=== PATIENT | female | born 1965 | race Hispanic/Latino ===

== ENCOUNTER → 2018-02-17 | Day surgery (SDC) | payer OTHER ==
[~2018-02-17] MED LIST: FENTANYL CITRATE/PF 100MCG/2 ML INJ ONE; HYOSCYAMINE SULFATE 0.5 MG/ML AMP ONE; LIDOCAINE HCL 2% LOCAL INJ 5 ML SDV VIAL INJ ONE; MIDAZOLAM HCL 2 MG/2 ML VIAL ONE; PROPOFOL IV EMULSION 10 MG/ML 50 ML VIAL ONE; THYROID MEDICATION PO; VITAMIN D250000 UNIT PO
--- NOTE | 2018-02-17 14:27 | Operative Report ---
DATE OF PROCEDURE: February 17, 2018 REFERRING PHYSICIAN: Quiana Guerra MD PROCEDURE PERFORMED: Colonoscopy and polypectomy. INDICATIONS FOR PROCEDURE: Colorectal cancer screening. MEDICATION: Patient was done under MAC. Please see anesthesiologist's note. PROCEDURE: With the patient in the left lateral decubitus position, the flexible fiberoptic Olympus colonoscope was inserted into the rectum with ease and advanced all the way to the cecum. It was then withdrawn slowly. Mucosa overlying the cecum and ascending colon appeared to be within normal limits. One polyp was hot biopsied from the transverse and one polyp was hot biopsied from the descending. Diverticular disease was noted to involve the sigmoid colon. The rectum appeared to be within normal limits. The scope was then retroflexed into the distal rectum, and small internal hemorrhoids were noted, none of which was actively bleeding. The scope was then straightened out. It was subsequently withdrawn. Patient tolerated the procedure well. IMPRESSION 1. Transverse colon polyp, hot biopsied. 2. Descending colon polyp, hot biopsied. 3. Diverticulosis. 4. Internal hemorrhoids, none actively bleeding. PLAN: Follow up histology. Initiate high-fiber, low-fat diet. Initiate high-fiber supplement. Patient will need a followup colonoscopy in 3 to 5 years. Job#: [id number] cc:JOHNATHAN GUERRA MD
== END | disposition home or self-care (01) ==
LOC: ENDO 08:51
PROVIDERS: ATTEND Internal Medicine Gastroenterology
DX: Z12.11 Encounter for screening for malignant neoplasm of colon (principal); D12.3 Benign neoplasm of transverse colon; K57.30 Diverticulosis of large intestine without perforation or abscess without bleeding; K64.8 Other hemorrhoids; K21.9 Gastro-esophageal reflux disease without esophagitis; R03.0 Elevated blood-pressure reading, without diagnosis of hypertension; E03.9 Hypothyroidism, unspecified; F41.9 Anxiety disorder, unspecified; Z88.0 Allergy status to penicillin; Z01.810 Encounter for preprocedural cardiovascular examination; Z68.35 Body mass index [BMI] 35.0-35.9, adult
CPT/HCPCS: 45384; 93005; J1980; J2001; J2250; 45378; 45385

== ENCOUNTER → 2018-03-20 | Outpatient (CLI) | payer OTHER ==
[~2018-03-20] MED LIST changes: -FENTANYL CITRATE/PF 100MCG/2 ML INJ ONE; -HYOSCYAMINE SULFATE 0.5 MG/ML AMP ONE; -LIDOCAINE HCL 2% LOCAL INJ 5 ML SDV VIAL INJ ONE; -MIDAZOLAM HCL 2 MG/2 ML VIAL ONE; -PROPOFOL IV EMULSION 10 MG/ML 50 ML VIAL ONE
--- NOTE | 2018-03-20 14:57 | Diagnostic Imaging Report ---
EXAM: Transabdominal and Transvaginal Pelvic Ultrasound INDICATION: \[id number] \[id number] \S\FIBROIDS INTRAMURAL COMPARISON: None TECHNIQUE: Grayscale transverse and sagittal transabdominal and transvaginal images were obtained of the pelvis. Transvaginal imaging was medically necessary to better evaluate the endometrium. CLINICAL HISTORY: 53 year old G3, P3; last menstrual period: 5 years ago. FINDINGS: Uterus: Orientation: Anteverted Size: Approximately 9.6 x 4.1 x 6.6 cm, Normal Mass: Multiple heterogeneous masses are noted in the uterus: * 2.7 x 3.0 x 3.1 cm likely probably subserosal mass in the inferior body * 1.1 x 1.0 x 1.0 cm iso to mildly hyperechoic intramural lesion in the inferior body. * 2.3 x 1.9 x 2.3 cm rounded, likely intramural lesion in the mid right anterior body, with areas of shadowing likely representing calcification. * 2.5 x 2.1 x 2.8 cm likely subserosal mass in the right posterior body. Cervix: Unremarkable Endometrium: Thickness: 0.4 cm, Normal. Appearance: Homogeneous echotexture without focal thickening. Right ovary: Not visualized. Left ovary: Not visualized. Adnexa: Normal Cul-de-sac: No free fluid IMPRESSION: 1. Enlarged multi fibroid uterus, as described. 2. Ovaries could not be visualized due to overlying bowel gas and enlarged uterus Signed by: Dr. Mitch Hill M.D. on 03/20/2018 2:54 PM
== END ==
LOC: US 09:01
PROVIDERS: ATTEND Obstetrics & Gynecology Obstetrics
DX: D25.1 Intramural leiomyoma of uterus (principal)
CPT/HCPCS: 76830

== ENCOUNTER → 2018-10-28 | Outpatient (CLI) | payer OTHER ==
--- NOTE | 2018-10-28 10:35 | Diagnostic Imaging Report ---
Examination: Barium swallow. Clinical indication: Dysphagia. Comparison examination: None available. Technique: Effervescent crystals and barium were ingested by mouth. Multiple images of the esophagus and stomach were obtained. Fluoroscopy time: 1.1 minutes Total cumulative air Kerma: 60.45 mGy Findings: Swallowing mechanism is grossly normal. Vallecula and perform sinuses are symmetric. Esophageal mucosa is unremarkable. Normal distensibility. Small hiatal hernia with moderate gastroesophageal reflux. Gastric mucosa is grossly unremarkable. Impression: Small sliding hiatal hernia with associated gastroesophageal reflux. Signed by: Dr. Andrés Mccoy M.D. on 10/28/2018 10:32 AM
== END ==
LOC: DX 09:11
PROVIDERS: ATTEND Internal Medicine
DX: R13.10 Dysphagia, unspecified (principal)
CPT/HCPCS: 74220

== ENCOUNTER → 2020-10-24 | Outpatient (CLI) | payer OTHER | LOC: RAD 09:14 | PROVIDERS: ATTEND Internal Medicine | DX: R06.02 Shortness of breath (principal) | CPT/HCPCS: 71046 ==

== ENCOUNTER → 2021-05-18 | Outpatient (CLI) | payer OTHER | LOC: RAD 09:02 | PROVIDERS: ATTEND Internal Medicine | DX: B94.8 Sequelae of other specified infectious and parasitic diseases (principal) | CPT/HCPCS: 71046 ==

== ENCOUNTER 2021-06-27 12:19 | Emergency (ER) | payer OTHER ==
[~2021-06-27] VITALS: Ht 162.6 cm; Wt 93.0 kg
[2021-06-27] MEDS ORDERED: ASPIRIN 81 MG CHEW TAB PO ONE (12:45)
[2021-06-27 12:52] LABS: BASOPHILS # (AUTO) 0.1 (0.0-0.1); BASOPHILS % 0.7 % (0.0-1.0); EOSINOPHILS # (AUTO) 0.3 (0.0-0.4); EOSINOPHILS % 3.6 % (0.0-6.0); HEMATOCRIT 46.3 % (34.2-44.1); HEMOGLOBIN 15.1 g/dL (12.0-16.0); LYMPHOCYTES # (AUTO) 1.8 (1.0-3.2); LYMPHOCYTES % 23.2 % (18.0-39.1); MEAN CORPUSCULAR HEMOGLOBIN 28.1 pg (28-32); MEAN CORPUSCULAR HGB CONC 32.6 g/dL (31-35); MEAN CORPUSCULAR VOLUME 86.1 fL (81-99); MONOCYTES # (AUTO) 0.6 (0.2-0.8); MONOCYTES % 8.2 % (4.4-11.3); NEUTROPHILS # (AUTO) 4.9 (2.1-6.9); PLATELET COUNT 282 x10e3/uL (140-360); RED BLOOD COUNT 5.38 x10e6/uL (3.6-5.1); RED CELL DISTRIBUTION WIDTH 12.9 % (11.7-14.4)
[2021-06-27 13:03] LABS: INR 0.88; PARTIAL THROMBOPLASTIN TIME 25.8 seconds (23.8-35.5); PROTHROMBIN TIME 12.7 seconds (11.9-14.5)
[2021-06-27 13:11] LABS: ALBUMIN 3.8 g/dL (3.5-5.0); ALBUMIN/GLOBULIN RATIO 1.3 (0.8-2.0); ANION GAP 13.7 mmol/L (8-16); CALCIUM 9.3 mg/dL (8.4-10.2); CREATININE, SERUM 0.72 mg/dL (0.57-1.11); POTASSIUM 3.7 mmol/L (3.5-5.1)
[2021-06-27 13:29] LABS: CREATINE KINASE MB 1.7 ng/mL (0-5.0)
[2021-06-27] MEDS ORDERED: ZITHROMAX500 MG PO (13:42)
[2021-06-27] MEDS ORDERED: AZITHROMYCIN250 MG PO (13:43)
[2021-06-27] MEDS ORDERED: ALBUTEROL1.25 MG/3 NEB (13:43)
== END 2021-06-27 15:00 | disposition home or self-care (01) ==
LOC: ER 12:37
DX: R06.02 Shortness of breath (principal); J20.9 Acute bronchitis, unspecified; E03.9 Hypothyroidism, unspecified; Z86.16 Personal history of COVID-19
CPT/HCPCS: 36415; 71045; 80053; 82550; 82553; 83880; 84484; 85025; 85610; 85730; 93005; 99284; U0002

== ENCOUNTER 2021-07-17 18:37 | Inpatient (IN) | payer OTHER ==
[~2021-07-17] VITALS: Ht 162.6 cm; Wt 92.1 kg
[~2021-07-17 18:37] MED LIST changes: +ALBUTEROL1.25 MG/3 NEB; +AZITHROMYCIN250 MG PO; +ZITHROMAX500 MG PO
[2021-07-17] MEDS ORDERED: SODIUM CHLORIDE 0.9% 1000ML 1,000 ML IV ONE (19:00)
[2021-07-17 19:19] LABS: BASOPHILS # (AUTO) 0.1 (0.0-0.1); BASOPHILS % 0.7 % (0.0-1.0); EOSINOPHILS # (AUTO) 0.2 (0.0-0.4); EOSINOPHILS % 2.8 % (0.0-6.0); HEMATOCRIT 47.9 % (34.2-44.1); HEMOGLOBIN 15.8 g/dL (12.0-16.0); LYMPHOCYTES # (AUTO) 2.1 (1.0-3.2); LYMPHOCYTES % 24.9 % (18.0-39.1); MEAN CORPUSCULAR HEMOGLOBIN 28.4 pg (28-32); MEAN CORPUSCULAR VOLUME 86.2 fL (81-99); MONOCYTES # (AUTO) 0.7 (0.2-0.8); MONOCYTES % 7.7 % (4.4-11.3); NEUTROPHILS # (AUTO) 5.5 (2.1-6.9); NEUTROPHILS % 63.5 % (38.7-80.0); PLATELET COUNT 329 x10e3/uL (140-360); RED BLOOD COUNT 5.56 x10e6/uL (3.6-5.1); RED CELL DISTRIBUTION WIDTH 12.7 % (11.7-14.4)
[2021-07-17 19:28] LABS: INR 0.93; PROTHROMBIN TIME 13.2 seconds (11.9-14.5)
[2021-07-17 19:45] LABS: ALBUMIN 4.4 g/dL (3.5-5.0); ANION GAP 16.3 mmol/L (8-16); CALCIUM 8.8 mg/dL (8.4-10.2); CREATININE, SERUM 0.7 mg/dL (0.57-1.11); POTASSIUM 3.3 mmol/L (3.5-5.1)
[2021-07-17 19:46] LABS: ALBUMIN/GLOBULIN RATIO 1.4 (0.8-2.0)
[2021-07-17] MEDS ORDERED: SODIUM CHLORIDE 0.9% 50ML 50 ML ONE (20:27)
[2021-07-17] MEDS ORDERED: IOPAMIDOL 370 MG/ML 200 ML INFUS..BTL INJ ONE (20:28)
[2021-07-17] MEDS: HEPARIN 25,000 UNIT 1,200 UNIT in DEXTROSE 5% 250ML 250 ML IV SCH (22:30)
[2021-07-17] MEDS ORDERED: HEPARIN SOD (PORCINE) 5,000 UNIT/ML VIAL IV ONE (22:45)
[2021-07-17 23:08] LABS: CREATINE KINASE MB 0.9 ng/mL (0-5.0)
[2021-07-17] MEDS: CEFTRIAXONE 1 GM in SODIUM CHLORIDE 0.9% 50ML 50 ML IV SCH (23:53)
[2021-07-18] MEDS ORDERED: POTASSIUM CHLORIDE 20 MEQ TAB CR PO STA (01:32)
[2021-07-18] MEDS ORDERED: PHENAZOPYRIDINE HCL 100 MG TAB PO PRN (01:45)
[2021-07-18] MEDS ORDERED: CHLORASEPTIC SPRAY 177 ML BTL MM PRN (01:45)
[2021-07-18] MEDS ORDERED: DEXTROSE 50% SYRINGE 50 ML IV PRN (01:45)
[2021-07-18] MEDS ORDERED: POTASSIUM CHLORIDE 20 MEQ TAB CR PO PRN (01:45)
[2021-07-18] MEDS ORDERED: ALBUTEROL/IPRATROPIUM 3 ML NEB NEB PRN (01:45)
[2021-07-18] MEDS ORDERED: DOCUSATE SODIUM 100 MG CAP PO PRN (01:45)
[2021-07-18] MEDS ORDERED: HYDRALAZINE HCL 20 MG/ML VIAL IV PRN (01:45)
[2021-07-18] MEDS ORDERED: DIPHENHYDRAMINE HCL 25 MG CAP PO PRN (01:45)
[2021-07-18 07:07] LABS: BASOPHILS # (AUTO) 0.1 (0.0-0.1); BASOPHILS % 0.8 % (0.0-1.0); EOSINOPHILS # (AUTO) 0.3 (0.0-0.4); EOSINOPHILS % 4.1 % (0.0-6.0); HEMATOCRIT 45.2 % (34.2-44.1); HEMOGLOBIN 15.1 g/dL (12.0-16.0); LYMPHOCYTES # (AUTO) 1.7 (1.0-3.2); MEAN CORPUSCULAR HEMOGLOBIN 28.5 pg (28-32); MEAN CORPUSCULAR HGB CONC 33.4 g/dL (31-35); MEAN CORPUSCULAR VOLUME 85.3 fL (81-99); MONOCYTES # (AUTO) 0.6 (0.2-0.8); MONOCYTES % 9.2 % (4.4-11.3); NEUTROPHILS # (AUTO) 3.8 (2.1-6.9); NEUTROPHILS % 58.7 % (38.7-80.0); PLATELET COUNT 297 x10e3/uL (140-360); RED CELL DISTRIBUTION WIDTH 12.8 % (11.7-14.4)
[2021-07-18 07:32] LABS: ALBUMIN 3.7 g/dL (3.5-5.0); ALBUMIN/GLOBULIN RATIO 1.2 (0.8-2.0); ANION GAP 14.2 mmol/L (8-16); CALCIUM 8.4 mg/dL (8.4-10.2); CREATININE, SERUM 0.64 mg/dL (0.57-1.11)
[2021-07-18 07:33] LABS: POTASSIUM 4.2 mmol/L (3.5-5.1)
[2021-07-18 07:37] VITALS: BP 160/91
[2021-07-18 07:38] LABS: CREATINE KINASE 78 IU/L (29-168)
[2021-07-18 07:46] VITALS: BP 160/91
[2021-07-18 07:47] LABS: CHOL/HDL RATIO 4.2 (3.0-3.6)
[2021-07-18 08:03] VITALS: BP 160/91
[2021-07-18 08:07] LABS: THYROID STIMULATING HORMONE 3.21 uIU/mL (0.350-4.940)
[2021-07-18] MEDS ORDERED: SODIUM CHLORIDE 0.9% 250ML 250 ML ONE (08:09)
[2021-07-18] MEDS: CEFTRIAXONE 1 GM in SODIUM CHLORIDE 0.9% 50ML 50 ML IV SCH (08:15)
[2021-07-18] MEDS ORDERED: CLINDAMYCIN PHOS 900MG/ 50ML 50 ML IV ONE (10:15)
[2021-07-18 11:40] VITALS: BP 177/89
[2021-07-18] MEDS: LOSARTAN POTASSIUM 100 MG TAB PO SCH (12:02)
[2021-07-18 12:10] LABS: CLARITY,URINE CLEAR (CLEAR); COLOR,URINE YELLOW (YELLOW); KETONES,URINE NEGATIVE (NEGATIVE); LEUKOCYTE ESTERASE ,URINE TRACE (NEGATIVE); NITRITE,URINE NEGATIVE (NEGATIVE); PROTEIN,URINE DIPSTICK NEGATIVE (NEGATIVE); URINE UROBILINOGEN 0.2 mg/dL (0.2 - 1)
[2021-07-18 12:23] LABS: BACTERIA,URINE MANY /HPF; EPITHELIAL CELLS,URINE RARE /LPF; WBC,URINE (MAN) 0-5 /HPF (0-5)
[2021-07-18 15:29] LABS: CREATINE KINASE MB 0.8 ng/mL (0-5.0)
[2021-07-18 15:48] VITALS: BP 159/76
[2021-07-18] MEDS ORDERED: ONDANSETRON HCL INJ 2MG/ML 2ML 2 MG/ML VIAL IV PRN (19:30)
[2021-07-18] MEDS: ACETAMINOPHEN 325 MG TAB PO PRN (19:45)
[2021-07-18 20:00] VITALS: BP 130/72
[2021-07-18] MEDS ORDERED: HEPARIN 25,000 UNIT DRIP IV ONE (22:27)
[2021-07-18] MEDS: HEPARIN 25,000 UNIT 1,200 UNIT in DEXTROSE 5% 250ML 250 ML IV SCH (23:18)
[2021-07-19] VITALS (11 sets, daily range): BP systolic 117–146; BP diastolic 58–82
[2021-07-19] MEDS: ALBUTEROL/IPRATROPIUM 3 ML NEB NEB SCH ×3 (03:15→20:15)
[2021-07-19 05:06] LABS: BASOPHILS # (AUTO) 0.1 (0.0-0.1); BASOPHILS % 0.9 % (0.0-1.0); EOSINOPHILS # (AUTO) 0.4 (0.0-0.4); EOSINOPHILS % 5.7 % (0.0-6.0); HEMATOCRIT 44.7 % (34.2-44.1); HEMOGLOBIN 14.6 g/dL (12.0-16.0); LYMPHOCYTES # (AUTO) 1.9 (1.0-3.2); LYMPHOCYTES % 29.7 % (18.0-39.1); MEAN CORPUSCULAR HEMOGLOBIN 28.6 pg (28-32); MEAN CORPUSCULAR HGB CONC 32.7 g/dL (31-35); MEAN CORPUSCULAR VOLUME 87.5 fL (81-99); MONOCYTES # (AUTO) 0.6 (0.2-0.8); MONOCYTES % 8.5 % (4.4-11.3); NEUTROPHILS # (AUTO) 3.5 (2.1-6.9); NEUTROPHILS % 54.9 % (38.7-80.0); PLATELET COUNT 281 x10e3/uL (140-360); RED BLOOD COUNT 5.11 x10e6/uL (3.6-5.1); RED CELL DISTRIBUTION WIDTH 12.9 % (11.7-14.4)
[2021-07-19 05:31] LABS: ANION GAP 13.7 mmol/L (8-16); CALCIUM 8.6 mg/dL (8.4-10.2); CREATININE, SERUM 0.66 mg/dL (0.57-1.11); MAGNESIUM 2.1 MG/DL (1.3-2.1); PHOSPHORUS 4.7 MG/DL (2.3-4.7); POTASSIUM 3.7 mmol/L (3.5-5.1)
[2021-07-19 05:39] LABS: THYROID STIMULATING HORMONE 3.685 uIU/mL (0.350-4.940)
[2021-07-19] MEDS: THYROID MEDICATION PO SCH (05:57)
[2021-07-19] MEDS: CEFTRIAXONE 1 GM in SODIUM CHLORIDE 0.9% 50ML 50 ML IV SCH (07:42)
[2021-07-19] MEDS: PANTOPRAZOLE SOD 40 MG TABEC PO SCH (11:00)
[2021-07-19] MEDS: LOSARTAN POTASSIUM 100 MG TAB PO SCH (11:00)
[2021-07-19] MEDS: ACETAMINOPHEN 325 MG TAB PO PRN (11:00)
[2021-07-19 12:51] LABS: BODY FLUID COLOR YELLOW; BODY FLUID TYPE PLEURAL
[2021-07-19 12:52] LABS: BODY FLUID APPEARANCE CLOUDY; RBC,BODY FLUID 4000 cells/uL; WBC,BODY FLUID 650 cells/uL
[2021-07-19 14:16] LABS: NEUTROPHILS,BODY FLUID 2 %
[2021-07-19 14:17] LABS: LYMPHOCYTES,BODY FLUID 75 %; MONO/MACROPHG,BODY FLUID 5 %; OTHER CELLS,BODY FLUID 18 %
[2021-07-19] MEDS ORDERED: ONDANSETRON HCL 4 MG ORAL DISINTEGRATING TAB PO PRN (18:00)
[2021-07-19 18:46] LABS: FERRITIN 169.4 ng/mL (4.63-204.00)
[2021-07-19] MEDS: AZITHROMYCIN 250 MG TAB PO SCH (22:45)
[2021-07-20] VITALS (7 sets, daily range): BP systolic 113–128; BP diastolic 63–75
[2021-07-20] MEDS: ALBUTEROL/IPRATROPIUM 3 ML NEB NEB SCH ×4 (00:25→19:10)
[2021-07-20] MEDS: PANTOPRAZOLE SOD 40 MG TABEC PO SCH (07:30)
[2021-07-20] MEDS: CEFTRIAXONE 1 GM in SODIUM CHLORIDE 0.9% 50ML 50 ML IV SCH ×2 (08:52→09:01)
[2021-07-20] MEDS: THYROID MEDICATION PO SCH (08:59)
[2021-07-20] MEDS: LOSARTAN POTASSIUM 100 MG TAB PO SCH (09:00)
[2021-07-20] MEDS ORDERED: LIDOCAINE HCL 4% 50 ML BTL ONE (10:02)
[2021-07-20] MEDS ORDERED: EPINEPHRINE HCL 1:1000 1ML 1 MG/ML AMP ONE (10:02)
[2021-07-20] MEDS ORDERED: LIDOCAINE HCL 2% JELLY 5 ML TUBE ONE (10:02)
[2021-07-20] MEDS ORDERED: ACETYLCYSTEINE 200 MG/ML 4ML VIAL ONE (10:49)
[2021-07-20] MEDS ORDERED: MIDAZOLAM HCL 2 MG/2 ML VIAL ONE (12:25)
[2021-07-20] MEDS ORDERED: FENTANYL CITRATE/PF 100MCG/2 ML INJ ONE (12:25)
[2021-07-20] MEDS ORDERED: SEVOFLURANE INHAL SOLN 250 ML PEN BTL ONE (13:14)
[2021-07-20] MEDS ORDERED: PROPOFOL IV EMULSION 10 MG/ML 20 ML VIAL ONE (13:14)
[2021-07-20] MEDS ORDERED: LIDOCAINE HCL 2% LOCAL INJ 5 ML SDV VIAL INJ ONE (13:14)
[2021-07-20] MEDS ORDERED: DEXAMETHASONE SOD PHOS INJ 4 MG/ML SDV ONE (13:14)
[2021-07-20] MEDS ORDERED: POVIDONE IODINE 0.05% 0.05 % ML PO ONE (13:14)
[2021-07-20] MEDS: AZITHROMYCIN 250 MG TAB PO SCH (21:57)
[2021-07-21 01:06] VITALS: BP 112/59
[2021-07-21 05:39] VITALS: BP 112/68
[2021-07-21] MEDS: ALBUTEROL/IPRATROPIUM 3 ML NEB NEB SCH ×3 (06:50→13:00)
[2021-07-21] MEDS: HEPARIN 25,000 UNIT 1,200 UNIT in DEXTROSE 5% 250ML 250 ML IV SCH (06:59)
[2021-07-21 07:59] VITALS: BP 110/65
[2021-07-21 09:13] LABS: BASOPHILS % 0.7 % (0.0-1.0); EOSINOPHILS # (AUTO) 0.3 (0.0-0.4); EOSINOPHILS % 4.6 % (0.0-6.0); HEMATOCRIT 45.9 % (34.2-44.1); HEMOGLOBIN 14.2 g/dL (12.0-16.0); LYMPHOCYTES # (AUTO) 1.2 (1.0-3.2); LYMPHOCYTES % 19.8 % (18.0-39.1); MEAN CORPUSCULAR HEMOGLOBIN 28.5 pg (28-32); MEAN CORPUSCULAR HGB CONC 30.9 g/dL (31-35); MEAN CORPUSCULAR VOLUME 92.2 fL (81-99); MONOCYTES # (AUTO) 0.5 (0.2-0.8); NEUTROPHILS # (AUTO) 3.9 (2.1-6.9); NEUTROPHILS % 65.7 % (38.7-80.0); PLATELET COUNT 236 x10e3/uL (140-360); RED BLOOD COUNT 4.98 x10e6/uL (3.6-5.1); RED CELL DISTRIBUTION WIDTH 13.3 % (11.7-14.4)
[2021-07-21] MEDS: CEFTRIAXONE 1 GM in SODIUM CHLORIDE 0.9% 50ML 50 ML IV SCH (09:26)
[2021-07-21] MEDS: THYROID MEDICATION PO SCH (09:26)
[2021-07-21] MEDS: PANTOPRAZOLE SOD 40 MG TABEC PO SCH (09:26)
[2021-07-21] MEDS: LOSARTAN POTASSIUM 100 MG TAB PO SCH (09:27)
[2021-07-21] MEDS ORDERED: APIXABAN 5 MG TABLET PO SCH (11:45)
[2021-07-21 12:00] VITALS: BP 127/85
[2021-07-21 15:52] VITALS: BP 131/68
== END 2021-07-21 18:26 | disposition home or self-care (01) | DRG 180 ==
LOC: ER 18:56 → ERHOLD 22:47 → IMCU 07-18 07:31 → MED/SURG2 07-19 16:09
PROVIDERS: ADMIT Internal Medicine; ATTEND Internal Medicine
PROC: 0BJ08ZZ Inspection of Tracheobronchial Tree, Via Natural or Artificial Opening Endoscopic (ICD-10-PCS; principal; 2021-07-17)
PROC: 0BB68ZX Excision of Right Lower Lobe Bronchus, Via Natural or Artificial Opening Endoscopic, Diagnostic (ICD-10-PCS; 2021-07-17)
PROC: 0BD68ZX Extraction of Right Lower Lobe Bronchus, Via Natural or Artificial Opening Endoscopic, Diagnostic (ICD-10-PCS; 2021-07-17)
PROC: 0W993ZZ Drainage of Right Pleural Cavity, Percutaneous Approach (ICD-10-PCS; 2021-07-19)
DX: C34.90 Malignant neoplasm of unspecified part of unspecified bronchus or lung (principal); I26.94 Multiple subsegmental thrombotic pulmonary emboli without acute cor pulmonale; J18.9 Pneumonia, unspecified organism; J91.8 Pleural effusion in other conditions classified elsewhere; C78.2 Secondary malignant neoplasm of pleura; E03.9 Hypothyroidism, unspecified; K20.90 Esophagitis, unspecified without bleeding; I10 Essential (primary) hypertension; I27.20 Pulmonary hypertension, unspecified; Z86.16 Personal history of COVID-19; J40 Bronchitis, not specified as acute or chronic; K21.9 Gastro-esophageal reflux disease without esophagitis
CPT/HCPCS: 31622; 31623; 32555; 36415; 71045; 71260; 76604; 80048; 80053; 80061; 81001; 81220; 82105; 82378; 82550; 82553; 82668; 82728; 82945; 82948; 83036; 83540; 83615; 83735; 84100; 84157; 84443; 84466; 84484; 85025; 85610; 85730; 86301; 86304; 87040; 87070; 87102; 87116; 87205; 87206; 87335; 88112; 88305; 88342; 89051; 93005; 93306; 93970; 94640; 94799; 97139; 99285; J0171; J0456; J0696; J1100; J1644; J2001; J2250; J3010; J7050; Q9967; U0002

== ENCOUNTER 2021-09-28 13:06 | Inpatient (IN) | payer OTHER ==
[~2021-09-28] VITALS: Ht 193 cm; Wt 88.0 kg
[2021-09-28 14:04] LABS: BASOPHILS % 0.5 % (0.0-1.0); EOSINOPHILS # (AUTO) 0.1 (0.0-0.4); EOSINOPHILS % 3.5 % (0.0-6.0); HEMATOCRIT 39.8 % (34.2-44.1); HEMOGLOBIN 13.4 g/dL (12.0-16.0); LYMPHOCYTES # (AUTO) 0.5 (1.0-3.2); LYMPHOCYTES % 13.4 % (18.0-39.1); MEAN CORPUSCULAR HGB CONC 33.7 g/dL (31-35); MEAN CORPUSCULAR VOLUME 86.1 fL (81-99); MONOCYTES # (AUTO) 0.3 (0.2-0.8); MONOCYTES % 6.9 % (4.4-11.3); PLATELET COUNT 221 x10e3/uL (140-360); RED BLOOD COUNT 4.62 x10e6/uL (3.6-5.1); RED CELL DISTRIBUTION WIDTH 13.5 % (11.7-14.4)
[2021-09-28 14:22] LABS: ALBUMIN 3.5 g/dL (3.5-5.0); ALBUMIN/GLOBULIN RATIO 1.2 (0.8-2.0); ANION GAP 11.8 mmol/L (8-16); CALCIUM 8.9 mg/dL (8.4-10.2); CREATININE, SERUM 0.62 mg/dL (0.57-1.11); POTASSIUM 3.8 mmol/L (3.5-5.1)
[2021-09-28] MEDS ORDERED: ONDANSETRON HCL INJ 2MG/ML 2ML 2 MG/ML VIAL IV STA (16:26)
[2021-09-28] MEDS ORDERED: ONDANSETRON HCL INJ 2MG/ML 2ML 2 MG/ML VIAL IV PRN (16:30)
[2021-09-28] MEDS ORDERED: HYDROCODONE/APAP 7.5MG-325MG 1 EA TAB PO PRN (17:00)
[2021-09-28] MEDS ORDERED: SODIUM CHLORIDE 0.9% 1000ML 1,000 ML IV SCH (17:45)
[2021-09-28 20:00] VITALS: BP 136/80
[2021-09-28] MEDS ORDERED: ALBUTEROL/IPRATROPIUM 3 ML NEB NEB PRN (20:15)
[2021-09-28 20:20] VITALS: BP 136/80
[2021-09-28 21:40] VITALS: BP 136/80
[2021-09-29] VITALS (8 sets, daily range): BP systolic 108–129; BP diastolic 63–82
[2021-09-29] MEDS ORDERED: LEVOTHYROXINE137 MCG PO (00:46)
[2021-09-29] MEDS ORDERED: ELIQUIS5 MG PO (00:46)
[2021-09-29] MEDS ORDERED: OMEPRAZOLE40 MG PO (00:46)
[2021-09-29] MEDS ORDERED: ONDANSETRON HCL8 MG PO (00:46)
[2021-09-29] MEDS ORDERED: VITAMIN D3250 MC1 (00:46)
[2021-09-29] MEDS ORDERED: LOSARTAN POTASS50 MG PO (00:46)
[2021-09-29] MEDS ORDERED: HYDRALAZINE HCL 20 MG/ML VIAL IV PRN (02:00)
[2021-09-29] MEDS ORDERED: BENZONATATE 100 MG CAP PO PRN (02:00)
[2021-09-29] MEDS ORDERED: DIPHENHYDRAMINE HCL 25 MG CAP PO PRN (02:00)
[2021-09-29] MEDS ORDERED: NON-FORMULARY MEDICATION (Losartan Potassium 50 MG) PO SCH (02:00)
[2021-09-29] MEDS ORDERED: POTASSIUM CHLORIDE 20 MEQ TAB CR PO PRN (02:00)
[2021-09-29] MEDS ORDERED: ACETAMINOPHEN 325 MG TAB PO PRN (02:00)
[2021-09-29] MEDS ORDERED: MELATONIN 5 MG TABLET PO PRN (02:00)
[2021-09-29] MEDS ORDERED: ALBUTEROL/IPRATROPIUM 3 ML NEB NEB PRN (02:00)
[2021-09-29] MEDS ORDERED: ONDANSETRON HCL INJ 2MG/ML 2ML 2 MG/ML VIAL IV PRN (02:00)
[2021-09-29] MEDS ORDERED: LIDOCAINE 4% PATCH TP PRN (02:00)
[2021-09-29] MEDS ORDERED: SIMETHICONE 80 MG CHEW PO PRN (02:00)
[2021-09-29] MEDS ORDERED: HYDROCODONE/APAP 5MG-325MG TAB PO PRN (02:00)
[2021-09-29] MEDS ORDERED: DEXTROSE 50% SYRINGE 50 ML IV PRN (02:00)
[2021-09-29 05:02] LABS: BASOPHILS % 0.5 % (0.0-1.0); EOSINOPHILS # (AUTO) 0.1 (0.0-0.4); EOSINOPHILS % 2.9 % (0.0-6.0); HEMATOCRIT 38.2 % (34.2-44.1); HEMOGLOBIN 12.8 g/dL (12.0-16.0); LYMPHOCYTES # (AUTO) 0.5 (1.0-3.2); LYMPHOCYTES % 12.8 % (18.0-39.1); MEAN CORPUSCULAR HGB CONC 33.5 g/dL (31-35); MEAN CORPUSCULAR VOLUME 86.4 fL (81-99); MONOCYTES # (AUTO) 0.2 (0.2-0.8); MONOCYTES % 6.3 % (4.4-11.3); NEUTROPHILS # (AUTO) 2.9 (2.1-6.9); PLATELET COUNT 196 x10e3/uL (140-360); RED BLOOD COUNT 4.42 x10e6/uL (3.6-5.1); RED CELL DISTRIBUTION WIDTH 13.2 % (11.7-14.4)
[2021-09-29] MEDS: LEVOTHYROXINE SODIUM 25 MCG TABLET PO SCH (05:27)
[2021-09-29] MEDS: LEVOTHYROXINE SODIUM 112 MCG TAB PO SCH (05:28)
[2021-09-29 05:40] LABS: ALBUMIN 3.2 g/dL (3.5-5.0); ALBUMIN/GLOBULIN RATIO 1.1 (0.8-2.0); ANION GAP 11.1 mmol/L (8-16); CALCIUM 8.9 mg/dL (8.4-10.2); CREATININE, SERUM 0.63 mg/dL (0.57-1.11); POTASSIUM 4.1 mmol/L (3.5-5.1)
[2021-09-29] MEDS: PANTOPRAZOLE SOD 40 MG TABEC PO SCH (08:27)
[2021-09-29] MEDS: LOSARTAN POTASSIUM 25 MG TAB PO SCH (08:27)
[2021-09-29] MEDS ORDERED: LEVOTHYROXINE SODIUM 112 MCG TAB PO SCH (09:00)
[2021-09-29] MEDS ORDERED: ENOXAPARIN SOD INJ 40 MG/0.4 ML SYR SC SCH (17:00)
[2021-09-30] VITALS (7 sets, daily range): BP systolic 105–111; BP diastolic 52–72
[2021-09-30] MEDS: LEVOTHYROXINE SODIUM 112 MCG TAB PO SCH (05:31)
[2021-09-30] MEDS: LEVOTHYROXINE SODIUM 25 MCG TABLET PO SCH (05:31)
[2021-09-30] MEDS: PANTOPRAZOLE SOD 40 MG TABEC PO SCH (08:13)
[2021-09-30] MEDS: LOSARTAN POTASSIUM 25 MG TAB PO SCH (09:24)
[2021-09-30] MEDS: DOCUSATE SODIUM 100 MG CAP PO PRN (10:31)
[2021-09-30] MEDS: APIXABAN 5 MG TABLET PO SCH (16:51)
[2021-10-01] VITALS (7 sets, daily range): BP systolic 88–108; BP diastolic 56–65
[2021-10-01 04:59] LABS: BASOPHILS % 0.8 % (0.0-1.0); EOSINOPHILS # (AUTO) 0.1 (0.0-0.4); EOSINOPHILS % 3.3 % (0.0-6.0); HEMOGLOBIN 12.9 g/dL (12.0-16.0); LYMPHOCYTES # (AUTO) 0.5 (1.0-3.2); LYMPHOCYTES % 12.7 % (18.0-39.1); MEAN CORPUSCULAR HGB CONC 33.9 g/dL (31-35); MEAN CORPUSCULAR VOLUME 85.4 fL (81-99); MONOCYTES # (AUTO) 0.2 (0.2-0.8); MONOCYTES % 6.4 % (4.4-11.3); NEUTROPHILS # (AUTO) 2.8 (2.1-6.9); NEUTROPHILS % 76.2 % (38.7-80.0); PLATELET COUNT 190 x10e3/uL (140-360); RED BLOOD COUNT 4.45 x10e6/uL (3.6-5.1); RED CELL DISTRIBUTION WIDTH 13.4 % (11.7-14.4)
[2021-10-01 05:23] LABS: ANION GAP 12.1 mmol/L (8-16); CALCIUM 8.9 mg/dL (8.4-10.2); CREATININE, SERUM 0.61 mg/dL (0.57-1.11); POTASSIUM 4.1 mmol/L (3.5-5.1)
[2021-10-01] MEDS: LEVOTHYROXINE SODIUM 25 MCG TABLET PO SCH (05:59)
[2021-10-01] MEDS: LEVOTHYROXINE SODIUM 112 MCG TAB PO SCH (05:59)
[2021-10-01] MEDS: PANTOPRAZOLE SOD 40 MG TABEC PO SCH (08:22)
[2021-10-01] MEDS: LOSARTAN POTASSIUM 25 MG TAB PO SCH (09:00)
[2021-10-01] MEDS: APIXABAN 5 MG TABLET PO SCH (09:16)
[2021-10-01] MEDS: DOCUSATE SODIUM 100 MG CAP PO PRN (13:01)
[2021-10-01 14:51] LABS: INR 1.01; PROTHROMBIN TIME 14.2 seconds (11.9-14.5)
[2021-10-02] VITALS (7 sets, daily range): BP systolic 101–117; BP diastolic 53–77
[2021-10-02] MEDS: LEVOTHYROXINE SODIUM 25 MCG TABLET PO SCH (05:43)
[2021-10-02] MEDS: LEVOTHYROXINE SODIUM 112 MCG TAB PO SCH (05:43)
[2021-10-02] MEDS: PANTOPRAZOLE SOD 40 MG TABEC PO SCH (09:11)
[2021-10-02] MEDS: LOSARTAN POTASSIUM 25 MG TAB PO SCH (09:11)
[2021-10-02] MEDS: DOCUSATE SODIUM 100 MG CAP PO PRN (11:00)
[2021-10-02] MEDS ORDERED: ONDANSETRON HCL 4 MG ORAL DISINTEGRATING TAB PO PRN (11:15)
[2021-10-03] VITALS (8 sets, daily range): BP systolic 99–113; BP diastolic 53–69
[2021-10-03] MEDS: LEVOTHYROXINE SODIUM 25 MCG TABLET PO SCH (06:08)
[2021-10-03] MEDS: LEVOTHYROXINE SODIUM 112 MCG TAB PO SCH (06:12)
[2021-10-03] MEDS: LOSARTAN POTASSIUM 25 MG TAB PO SCH (09:00)
[2021-10-03] MEDS: DOCUSATE SODIUM 100 MG CAP PO PRN ×2 (09:14→16:53)
[2021-10-03] MEDS: PANTOPRAZOLE SOD 40 MG TABEC PO SCH (09:14)
[2021-10-03] MEDS: APIXABAN 5 MG TABLET PO SCH ×2 (11:36→16:53)
[2021-10-03 13:01] LABS: BASOPHILS % 0.8 % (0.0-1.0); EOSINOPHILS # (AUTO) 0.2 (0.0-0.4); EOSINOPHILS % 4.8 % (0.0-6.0); HEMATOCRIT 38.2 % (34.2-44.1); HEMOGLOBIN 13.2 g/dL (12.0-16.0); LYMPHOCYTES # (AUTO) 0.5 (1.0-3.2); LYMPHOCYTES % 13.5 % (18.0-39.1); MEAN CORPUSCULAR HEMOGLOBIN 29.5 pg (28-32); MEAN CORPUSCULAR HGB CONC 34.6 g/dL (31-35); MEAN CORPUSCULAR VOLUME 85.5 fL (81-99); MONOCYTES # (AUTO) 0.4 (0.2-0.8); MONOCYTES % 8.9 % (4.4-11.3); NEUTROPHILS # (AUTO) 2.8 (2.1-6.9); PLATELET COUNT 193 x10e3/uL (140-360); RED BLOOD COUNT 4.47 x10e6/uL (3.6-5.1); RED CELL DISTRIBUTION WIDTH 13.6 % (11.7-14.4)
[2021-10-03 13:16] LABS: ANION GAP 10.9 mmol/L (8-16); CALCIUM 8.9 mg/dL (8.4-10.2); CREATININE, SERUM 0.64 mg/dL (0.57-1.11); POTASSIUM 3.9 mmol/L (3.5-5.1)
[2021-10-03] MEDS: DOXYCYCLINE HYCLATE TABLET 100 MG TAB PO SCH ×2 (13:18→16:53)
[2021-10-04] VITALS: BP 115/50
[2021-10-04 04:58] LABS: BASOPHILS % 0.9 % (0.0-1.0); EOSINOPHILS # (AUTO) 0.2 (0.0-0.4); EOSINOPHILS % 5.8 % (0.0-6.0); HEMOGLOBIN 12.2 g/dL (12.0-16.0); LYMPHOCYTES # (AUTO) 0.6 (1.0-3.2); MEAN CORPUSCULAR HEMOGLOBIN 29.1 pg (28-32); MEAN CORPUSCULAR HGB CONC 33.9 g/dL (31-35); MEAN CORPUSCULAR VOLUME 85.9 fL (81-99); MONOCYTES # (AUTO) 0.4 (0.2-0.8); MONOCYTES % 12.5 % (4.4-11.3); NEUTROPHILS # (AUTO) 2.2 (2.1-6.9); NEUTROPHILS % 63.6 % (38.7-80.0); PLATELET COUNT 173 x10e3/uL (140-360); RED BLOOD COUNT 4.19 x10e6/uL (3.6-5.1); RED CELL DISTRIBUTION WIDTH 13.5 % (11.7-14.4)
[2021-10-04] MEDS: LEVOTHYROXINE SODIUM 25 MCG TABLET PO SCH (05:36)
[2021-10-04] MEDS: LEVOTHYROXINE SODIUM 112 MCG TAB PO SCH (05:36)
[2021-10-04 07:53] VITALS: BP 114/66
[2021-10-04] MEDS: APIXABAN 5 MG TABLET PO SCH ×2 (07:56→16:07)
[2021-10-04] MEDS: LOSARTAN POTASSIUM 25 MG TAB PO SCH (07:56)
[2021-10-04] MEDS: DOXYCYCLINE HYCLATE TABLET 100 MG TAB PO SCH ×2 (07:56→16:07)
[2021-10-04] MEDS: PANTOPRAZOLE SOD 40 MG TABEC PO SCH (07:56)
[2021-10-04 08:30] VITALS: BP 114/66
[2021-10-04 11:15] VITALS: BP 108/61
[2021-10-04 16:56] VITALS: BP 100/50
[2021-10-05] MEDS ORDERED: APIXABAN 5 MG TABLET PO SCH (09:00)
== END 2021-10-04 18:00 | disposition home or self-care (01) | DRG 200 ==
LOC: ER 13:20 → ERHOLD 17:44 → MED/SURG 18:40
PROVIDERS: ADMIT Internal Medicine; ATTEND Internal Medicine
PROC: 0W9930Z Drainage of Right Pleural Cavity with Drainage Device, Percutaneous Approach (ICD-10-PCS; principal; 2021-09-28)
PROC: 0WP9X0Z Removal of Drainage Device from Right Pleural Cavity, External Approach (ICD-10-PCS; 2021-10-03)
DX: J93.83 Other pneumothorax (principal); C34.91 Malignant neoplasm of unspecified part of right bronchus or lung; E44.1 Mild protein-calorie malnutrition; E03.9 Hypothyroidism, unspecified; I10 Essential (primary) hypertension; Z86.711 Personal history of pulmonary embolism; Z88.0 Allergy status to penicillin; Z20.822 Contact with and (suspected) exposure to COVID-19; Z68.23 Body mass index [BMI] 23.0-23.9, adult
CPT/HCPCS: 32552; 32557; 36415; 71045; 71250; 74470; 77012; 80048; 80053; 83735; 85025; 85610; 94799; 97139; 99284; C1729; J1650; J2405; J7030; U0002